=== PATIENT | male | born 1940 | race African-American/Black ===

== ENCOUNTER 2017-03-27 10:19 | Inpatient (IN) ==
[2017-03-27] MEDS ORDERED: HALOPERIDOL 0.5 MG TABLET PO PRN (10:32)
[2017-03-27] MEDS ORDERED: LORazepam 0.5 MG TABLET PO PRN (10:32)
[2017-03-27] MEDS ORDERED: HALOPERIDOL 5 MG/ML INJECTION IM PRN (10:32)
[2017-03-27 12:34] VITALS: BMI 17.1
[2017-03-27] MEDS ORDERED: PNEUMOCOCCAL 13 VACCINE 0.5ml INJECTION IM ONE (12:34)
[2017-03-27] MEDS ORDERED: PNEUMOCOCCAL VAC ADMIN CHARGE INJ ONE (20:50)
[2017-03-27] MEDS: QUETIAPINE 50 MG TABLET PO SCH (20:57)
[2017-03-28] MEDS: MEMANTINE 10 MG TABLET PO SCH (09:53)
--- NOTE | 2017-03-28 10:25 | History & Physical Report ---
History of Present Illness Date: 03/28/17 Chief complaint: schizophrenia with psychosis HPI: Raad Monaco is a pleasant patient of Dr. Howard Wiggins from [place] who was directly admitted to [facility] on 03/27/17 due to acute psychosis and schizophrenia. Reportedly his family brought him to [facility] ED during the early hours on 03/27/17 for evaluation of increased agitation, insomnia, decreased appetite, visual and auditory hallucinations which had progressively been getting worse over the past 10-14 days. He was admitted into observation status at [facility] while he awaited psychiatric screening. Labs on admission revealed mild anemia (10.3) as well as hypokalemia (potassium 3.3). It is unclear if potassium supplementation was provided during his acute hospitalization at [facility]. He was later accepted to the [facility] unit at [facility] for further psychiatric evaluation and treatment. The hospitalist service was consulted for medical management. His prior medical records were reviewed extensively. He has a history of significant alcohol and tobacco dependency/abuse which is believed to be a contributor to his underlying dementia. Prior medical records indicate that he moved to [place] to live with his son and [id number] in November of 2016. Since his move, he has had increasing falls as well as sleep disturbance, often pacing the halls at night. His son is very concerned about the patient's safety. He was seen by Dr. Neff, neurology, as an outpatient and it was recommended that he undergo a PET scan in the future for further evaluation of dementia and cognitive decline. Review of Systems All systems PM: 10-point ROS was reviewed, no additional remarkable complaints except - Constitutional Constitutional: Absent: chills, fever(s), headache(s), lethargy, weakness - EENMT Eyes: Absent: change in vision, photophobia Ears: Absent: ear pain Balance: Absent: falling to one side Nose: Absent: nosebleeds Mouth/Throat: Present: caries. Absent: sore throat, changes in swallowing, dry mouth - Cardiovascular Cardiovascular: Absent: chest pain, palpitations, syncope, dyspnea on exertion, orthopnea, edema Vascular: Absent: pallor of an extermity, pedal edema - Respiratory Respiratory: Absent: cough, dyspnea, hemoptysis, dyspnea on exertion, wheezing, pain on inspiration - Gastrointestinal Gastrointestinal: Absent: abdominal pain, constipation, diarrhea, melena, nausea , vomiting - Genitourinary Genitourinary: Absent: dysuria, flank pain, hematuria - Musculoskeletal Musculoskeletal: Absent: back pain, deformity, limited range of motion - Integumentary/Breasts Integumentary: Absent: rash - Neurological Neurological: Present: abnormal speech (mumbled and unorganized), confusion. Absent: convulsions, dizziness, focal weakness, headache(s), loss of vision, tremor(s) Neurological Comments: gait instability - Psychiatric Psychiatric: Present: abnormal sleep pattern, anxiety, auditory hallucinations, depression, hallucinations, visual hallucinations - Endocrine Endocrine: Absent: flushing, palpitations - Hematologic/Lymphatic Hematologic/Lymphatic: Absent: easy bruising - Allergic/Immunologic Allergic/Immunologic: Absent: seasonal rhinorrhea Past Medical History Patient Stated Medical History Dementia. Cataracts. COPD with asthma. Urinary incontinency. History of alcohol abuse. History of tobacco dependency. Surgical History: Patient denies prior surgical procedures. Family History Updates: Limited due to patient's dementia. Both parents are and he believes his father had "heart problems". He admits to 4 living children, 2 girls and 2 boys, which he believes are in good health. - Social History Smoking status: Former smoker (Quit 11/2016) Packs per day: 1 Packs-years: 40 Substance use type: does not use Alcohol intake frequency: former alcohol drinker (quit 11/2016) Housing: house Household members: family (son and [id number]) Current occupational status: retired Does patient use chewing tobacco?: No Current residence: Apartment/Private Home Social history: PCP - Dr. Howard Wiggins. Neuro - Dr. Neff. Medications Home Medications Medication Instructions Recorded Confirmed Type DiphenhydrAMINE [Benadryl] 1 cap PO HS 03/27/17 03/27/17 History Folic Acid [Folate] 1 tab PO DAILY 03/27/17 03/27/17 History Memantine [Namenda] 10 mg PO DAILY 03/27/17 03/27/17 History Multivitamin [Multivitamins] 1 cap PO DAILY 03/27/17 03/27/17 History Quetiapine [Seroquel] 12.5 mg PO 1400 03/27/17 03/27/17 History Quetiapine [Seroquel] 50 mg PO HS 01/10/18 01/10/18 History Thiamine [Vitamin B-1] 100 mg PO DAILY 03/27/17 03/27/17 History Allergies Allergy/AdvReac Type Severity Reaction Status Date / Time No Known Adverse Drug Allergy Verified 03/27/17 11:06 Reactions Exam Vital Signs: Temperature 97.6 F 03/28/17 08:00 Pulse Rate 100 03/28/17 08:00 Respiratory Rate 16 03/28/17 08:00 Blood Pressure 106/53 03/28/17 08:00 Pulse Oximetry 99 03/27/17 20:27 Height/Weight/BMI: Height 5 ft 5 in Weight 102 lb 15.294 oz Body Mass Index 17.1 Comments: Patient is seen in day room, actively eating all his breakfast. - Constitutional Present: no acute distress, well nourished, well developed, thin, cooperative - Routine HEENT Exam Head: Present: normocephalic, atraumatic Eye: Present: PERRL, cataracts. Absent: conjunctival icterus ENT: Present: mucous membranes moist Comments: very poor dentition noted with multiple fractured teeth; large, soft, lipoma noted to occipital region of scalp without tenderness. - Routine Neck Exam Present: supple, full ROM, trachea midline - Routine Chest/Breast/Axilla Exam Chest wall: Absent: pacemaker - Routine Respiratory Exam Present: CTA bilaterally. Absent: rales, rhonchi, stridor, wheezes - Routine Cardiovascular Exam Present: RRR, S1, S2 - Routine Abdominal Exam Present: soft, normoactive bowel sounds, non distended, non tender Comments: very thin - Routine Extremities Exam Present: no edema, non tender, full ROM, pulses intact - Routine Back/Spine/Pelvis Exam Back/Spine: Present: full ROM, kyphosis - Routine Skin Exam Present: dry, warm. Absent: jaundice Comments: afebrile. - Routine Neurological Exam Present: alert (orientated to self only), moving all extremities, hearing grossly intact speech is mumbled and unorganized. - Routine Psychiatric Exam Present: cooperative. Absent: suicidal ideation, homicidal ideation, auditory hallucinations, visual hallucinations, anxious, agitated Assessment and Plan (1) Psychosis Current visit: Yes Status: Acute Assessment and Plan: Assessment Psychosis with visual and auditory hallucinations, acute. Anemia, unspecified. Poor dentition, chronic. Dementia. Cataracts. COPD with asthma. Urinary incontinency. History of alcohol abuse. History of tobacco dependency. Plan - 03/28/17 (Admission) Agree with admission to [facility]. Provide safe and supportive environment. Hospitalist service consulted for medical management. Prior records from 03/25/17 indicated anemia (Hgb 10.3) and hypokalemia (K 3.3). Will obtain CBC and BMP now and treat as indicated. Underweight with BMI of 17.1. Will consult dietary for supplementation recommendations. Give extensive dental decay, will change diet to mechanical soft with chopped meats for ease of intake. Continue home medications and vitamins given history of alcohol abuse. Patient denies prior heart history. Monitor blood pressure closely. Monitor respiratory function closely. No wheezing or distress on exam and no home medications for COPD/asthma. Upon discharge, patient's care will be returned to PCP, Dr. Howard Wiggins. Resuscitation Status: Full Code - Time spent with patient Time with patient PN: 70 minutes - Physician Narrative Physician: Melody Peoples MD Narrative: Date: 03/28/17 Time: 1013 Hospital Course Summary Disclaimer: The visit summary below is not to be considered part of the above Progress Note. Hospital Course: Plan - 03/28/17 (Admission) Agree with admission to [facility]. Provide safe and supportive environment. Hospitalist service consulted for medical management. Prior records from 03/25/17 indicated anemia (Hgb 10.3) and hypokalemia (K 3.3). Will obtain CBC and BMP now and treat as indicated. Underweight with BMI of 17.1. Will consult dietary for supplementation recommendations. Give extensive dental decay, will change diet to mechanical soft with chopped meats for ease of intake. Continue home medications and vitamins given history of alcohol abuse. Patient denies prior heart history. Monitor blood pressure closely. Monitor respiratory function closely. No wheezing or distress on exam and no home medications for COPD/asthma. Upon discharge, patient's care will be returned to PCP, Dr. Howard Wiggins.
[2017-03-28] MEDS: FOLIC ACID 1 MG TABLET PO SCH (13:59)
[2017-03-28] MEDS: MULTI-VITAMIN PLAIN TABLET PO SCH (13:59)
[2017-03-28] MEDS: QUETIAPINE 25 MG TABLET PO SCH (14:00)
--- NOTE | 2017-03-28 18:03 | 24 Hour Neuropsychiatic Eval ---
Date of Admission: 03/27/17 10:19 History of Present Illness: Patient is a 77-year-old male who was admitted to [facility] on 03/27/17 after being brought by his family due to AV hallucinations, not sleeping, decreased appetite, frequent falls and their difficulty caring for patient because of these things. This has gotten progressively worse over the past 10-14 days. Patient lives in [place] with his son/DADA and his and has done so since November 2016. His son is DADA. On interview, patient is quite pleasant. He reports his mood is "good" and states he is here because he "was having back flashes" but these went away. He denies any change in sleep or appetite. He denies any SI, HI or AVH. He denies any paranoia. He is oriented to self only and believes he has been here for 3 months. Psychiatric history: Patient states that he was depressed once earlier in his life, but not currently. He is unsure if he took any medication for this. He denies any history of suicide attempts or psychiatric hospitalizations. This has not been validated by his family. Social history: Patient states that he is originally from [place] and went to school through 11th grade. 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 He does have a history of tobacco use and alcohol abuse, but says this was a long time ago. The above has also not been validated by his family. Patient is not able to name any medical conditions. His dentition is quite poor. Per hospitalist's chart review he has the following: anemia, poor nutrition, cataracts, COPD with asthma, urinary incontinence. Patient's SLUMS was 16/30 upon admission. Psychosis: Hallucinations/Illusions Dementia: Memory Impairment, Poor Executive Functioning Reviewed: Home Medications, Allergies, Current Lab Data, Imaging Reports, Nursing Notes, Physician Consults [facility] Patient Stated Medical History Dementia Yes Cataracts Yes Asthma Yes Chronic Obstructive Pulmonary questionable Disease (COPD) Hx Incontinence Yes Surgical History: Patient denies prior surgical procedures. Family History: Patient denies any family history of psychiatric illness but is not a reliable historian. - Social History Smoking status: Former smoker (Quit 11/2016) Substance use type: does not use Alcohol intake frequency: former alcohol drinker Household members: children Current occupational status: retired Does patient use chewing tobacco?: No Current residence: Apartment/Private Home Social history: Strengths: pleasant personality, has supportive family, currently living with son Review of Systems All systems: reviewed and no additional remarkable complaints except as stated - Constitutional Constitutional: Present: as per HPI - EENMT Ears: Absent: ear pain Balance: Absent: falling to one side Nose: Absent: nosebleeds Mouth/Throat: Present: caries. Absent: sore throat, changes in swallowing, dry mouth - Cardiovascular Vascular: Absent: pallor of an extermity, pedal edema - Genitourinary Genitourinary: Absent: dysuria, flank pain, hematuria - Neurological Neurological: Present: frequent falls, memory loss - Psychiatric Psychiatric: Present: as per HPI, abnormal sleep pattern, auditory hallucinations, behavioral changes, hallucinations, visual hallucinations Mental Status Exam Vitals: Last Vital Signs Temp 99.7 F 03/28/17 16:00 Pulse 90 03/28/17 16:00 Resp 16 03/28/17 16:00 BP 122/56 03/28/17 16:00 Pulse Ox 96 03/28/17 16:00 Height: 1.65 m Weight: 46.7 kg - Mental Status Exam Muscle Strength/Tone: Normal Dressing: Casual Grooming: Fair (very poor dentition) Attitude: Cooperative Motor Activity: Retardation Eye Contact: Other (Limited) Speech: Slowed Volume: Soft Rhythm: Appropriate Rhythm Sensory: Alert Orientation: Disoriented to time, Disoriented to place, Disoriented to situation , Oriented to person Mood: Euthymic Affect: Relaxed Rate of Thoughts: Delayed Thought Organization: Confused Associations: Illogical Abstract Reasoning: Poor abstract reasoning Thought Content: Other (No abnormal thought content elicited other than confusion due to MNCD) Current Hallucinations: Visual (reported by family, not apparent during interview), Auditory (reported by family, not apparent during interview) Language: Naming Impaired Fund of Knowledge: Poor fund of knowledge Memory: Poor-immediate, Poor-recent Suicidal Ideation: Denies Homicidal Ideation: Denies Insight: Impaired Judgement: Impaired Impulse Control: Fair - Laboratory Result Diagrams: 03/28/17 11:54 03/28/17 11:54 Laboratory Results - last 24 hr 03/28/17 03/28/17 11:54 11:54 WBC 6.2 RBC 3.89 L Hgb 11.5 L Hct 34.6 L MCV 88.9 MCH 29.6 MCHC 33.2 RDW Std Deviation 40.5 Plt Count 397 MPV 8.7 L Immature Gran % (Auto) 0.2 Neut % (Auto) 69.8 H Lymph % (Auto) 23.5 [place] % (Auto) 4.0 Eos % (Auto) 2.3 Baso % (Auto) 0.2 Neut # (Auto) 4.3 Lymph # (Auto) 1.5 [place] # (Auto) 0.3 Eos # (Auto) 0.1 Baso # (Auto) 0.0 Abs Immat Gran (auto) 0.01 Turbidity < 20 Sodium 146 H Potassium 3.5 L Chloride 104 Carbon Dioxide 30 Anion Gap 12 BUN 11.0 Creatinine 1.3 GFR Calculation 53 BUN/Creatinine Ratio 9 Glucose 142 H Calculated Osmolality 282 H Calcium 9.6 Icterus Index < 2 Specimen Hemolysis < 15 Assessment and Plan (1) Schizophrenia spectrum disorder with psychotic disorder type not yet determined Current visit: Yes Status: Acute (2) Major neurocognitive disorder Current visit: Yes Status: Acute (3) Anemia Current visit: Yes Status: Acute (4) Poor nutrition Current visit: Yes Status: Acute (5) Cataracts, bilateral Current visit: Yes Status: Acute (6) COPD with asthma Current visit: Yes Status: Acute (7) Urinary incontinence Current visit: Yes Status: Acute (8) History of alcohol use disorder Current visit: Yes Status: Acute (9) History of tobacco use disorder Current visit: Yes Status: Acute Admit to [facility] for [facility] evaluation and stabilization; maintain safety and elopement precautions. Will review/order the following labs: CBC, CMP , TSH, Vitamin B12 and folate, UA. Will obtain further collateral history from family. Have consulted hospitalist for optimization of medical comorbidities. Continue home meds: Namenda 10mg PO daily, Seroquel 12.5mg PO daily at 1400 and 50mg PO q HS. Monitor mood, behavior and response to treatment.
[2017-03-28] MEDS: QUETIAPINE 50 MG TABLET PO SCH (20:40)
[2017-03-29] MEDS: MEMANTINE 10 MG TABLET PO SCH (12:17)
[2017-03-29] MEDS: FOLIC ACID 1 MG TABLET PO SCH (12:17)
[2017-03-29] MEDS: MULTI-VITAMIN PLAIN TABLET PO SCH (12:17)
[2017-03-29] MEDS: QUETIAPINE 25 MG TABLET PO SCH ×2 (12:31→15:53)
--- NOTE | 2017-03-29 15:06 | Wound Care Progress Note ---
Wound Center Progress Note: Pt seen for wound consultation r/t wounds on bilateral buttocks. Seen with nurse , pt in recliner in [facility] area, brought back to his room for wound assessment. Pt denies pain, reports he has had these "sores" on his bottom for less than a week. Bilateral medial buttocks: Stage 3 PIs/mirror lesions/elements of MASD. L buttock: stage 3 PI, pink non granulating tissue, yellow slough, no drainage. Periwound: blanchable erythema. R buttock: Stage 3 PI, pink non granulating tissue, yellow slough, no drainage. Periwound: blanchable erythema. Wound dressings: To bilateral PIs: Clean with NS, place Hydrafera blue into wound bed, cover with Mepilex border, change q 3 days, off load with regular repositioning.
--- NOTE | 2017-03-29 15:10 | Wound Care Progress Note ---
Wound Management - Patient Status Premedicated Prior to Dressing Change: No - Wound Left Medial Buttock Wound Type: Pressure Injury Wound Present on Admission?: Yes Wound Staging: Stage III Length: 0.6 Width: 1 Depth: 0.1 Wound Bed Appearance: [place], [place] Wound Appearance: [place] Tunneling: No Undermining: No Drainage Amount: None Drainage Odor: No Odor Dressing Status: Changed Primary Dressing: Foam Dressing Secondary Dressing: Foam Dressing, Non-Adherent Contact Layer Dressing Change Date: 03/29/17 Dressing Change Time: 13:25 Dressing Change Patient Tolerance: Tolerated Well Right Medial Buttock Wound Type: Pressure Injury Wound Present on Admission?: Yes Wound Staging: Stage III Length: 2.5 Width: 2 Depth: 0.1 Wound Bed Appearance: [place] Wound Appearance: [place] Tunneling: No Undermining: No Drainage Amount: None Drainage Odor: No Odor Dressing Status: Changed Primary Dressing: Foam Dressing Secondary Dressing: Foam Dressing Dressing Change Date: 03/29/17 Dressing Change Time: 13:25 Dressing Change Patient Tolerance: Tolerated Well (Hydrafera blue classis moistened with NS to wound bed/Mepilex, change q 3 days) - Wound Comment Wound Comment: Hydrafera blue classic moistened with NS to wound bed, covered with Mepilex
--- NOTE | 2017-03-29 18:31 | Neuropsych Progress Note ---
[facility] Subjective Date: 03/29/17 - Sujective/Severity of Illness Medications: Folic Acid (Folate) 1 mg PO DAILY COUNTS INCLUDE 234 BEDS AT THE [facility] Last Admin: 03/29/17 12:17 Dose: 1 mg Haloperidol (Haldol) 0.5 mg PO Q6H PRN PRN Reason: Extreme agitation Haloperidol Lactate (Haldol) 0.5 mg IM Q6H PRN PRN Reason: Extreme agitation Lorazepam (Ativan) 0.5 mg PO Q6H PRN PRN Reason: Extreme agitation Lorazepam (Ativan Inj) 0.5 mg IM Q6H PRN PRN Reason: Extreme agitation Memantine (Namenda) 10 mg PO DAILY COUNTS INCLUDE 234 BEDS AT THE [facility] Last Admin: 03/29/17 12:17 Dose: 10 mg Multivitamins (Theragran) 1 tab PO DAILY COUNTS INCLUDE 234 BEDS AT THE [facility] Last Admin: 03/29/17 12:17 Dose: 1 tab Quetiapine Fumarate (Seroquel) 12.5 mg PO 1400 COUNTS INCLUDE 234 BEDS AT THE [facility] Last Admin: 03/29/17 15:53 Dose: Not Given Quetiapine Fumarate (Seroquel) 50 mg PO HS COUNTS INCLUDE 234 BEDS AT THE [facility] Last Admin: 03/28/17 20:40 Dose: 50 mg Thiamine HCl (Vitamin B-1) 100 mg PO DAILY COUNTS INCLUDE 234 BEDS AT THE [facility] Last Admin: 03/29/17 12:18 Dose: 100 mg Subjective: Patient seen and chart reviewed. Case discussed with treatment team. On interview, patient is pleasant. He reports his mood is "good" and denies any physical complaints. Patient denies any SI, HI or AVH. Patient denies any adverse side effects related to psychotropic medications. Nursing staff report patient becomes more confused in the evenings but is otherwise cooperative. He has a pressure wound on his coccyx. Patient has been adherent with medications. Patient slept 6 hours overnight though is somewhat restless at times. VSS. Appetite limited. Psychotropic PRNs required in the past 24 hours: none. Start Time: 11:00 Stop Time: 11:20 Mental Status Exam Vitals: Last Vital Signs Temp 96.1 F L 03/29/17 16:00 Pulse 77 03/29/17 16:00 Resp 16 03/29/17 16:00 BP 133/60 03/29/17 16:00 Pulse Ox 100 03/29/17 16:00 Height: 1.65 m Weight: 46.7 kg - Mental Status Exam Muscle Strength/Tone: Normal Dressing: Casual Grooming: Fair (very poor dentition) Attitude: Cooperative Motor Activity: Retardation Eye Contact: Other (Limited) Speech: Slowed Volume: Soft Rhythm: Appropriate Rhythm Orientation: Disoriented to time, Disoriented to place, Disoriented to situation , Oriented to person Mood: Euthymic Affect: Relaxed Rate of Thoughts: Delayed Thought Organization: Confused Associations: Illogical (at times) Abstract Reasoning: Poor abstract reasoning Thought Content: Other (No abnormal thought content elicited other than confusion due to MNCD) Perception/Psychotic: Hx psychosis, not current (reported by family, not seen on unit) Language: Naming Impaired Fund of Knowledge: Poor fund of knowledge Memory: Poor-immediate, Poor-recent Suicidal Ideation: Denies Homicidal Ideation: Denies Insight: Impaired Judgement: Impaired Impulse Control: Good - Laboratory Result Diagrams: 03/28/17 11:54 03/29/17 07:04 Laboratory Results - last 24 hr 03/28/17 03/28/17 03/29/17 11:54 23:51 07:04 Turbidity < 20 Sodium 143 Potassium 3.7 Chloride 105 Carbon Dioxide 28 Anion Gap 10 BUN 10.0 Creatinine 1.1 D GFR Calculation 65 BUN/Creatinine Ratio 9 Glucose 105 Calculated Osmolality 274 Calcium 9.1 Icterus Index < 2 Vitamin B12 812 Specimen Hemolysis < 15 Ur Collection Type Urine, clean catch Urine Color Yellow Urine Clarity Clear Urine pH 5.5 Ur Specific [place] 1.015 Urine Protein Negative Urine Glucose (UA) Negative Urine Ketones Negative Urine Occult Blood Negative Urine Nitrate Negative Urine Bilirubin Negative Urine Urobilinogen 0.2 Ur Leukocyte Esterase Negative Urinalysis Comment Microscopic not ind. Assessment and Plan (1) Schizophrenia spectrum disorder with psychotic disorder type not yet determined Current visit: Yes Status: Acute R/O Medication-induced delirium (due to Benadryl, held since admission) (2) Major neurocognitive disorder Current visit: Yes Status: Acute (3) Anemia Current visit: Yes Status: Acute (4) Poor nutrition Current visit: Yes Status: Acute (5) Cataracts, bilateral Current visit: Yes Status: Acute (6) COPD with asthma Current visit: Yes Status: Acute (7) Urinary incontinence Current visit: Yes Status: Acute (8) History of alcohol use disorder Current visit: Yes Status: Acute (9) History of tobacco use disorder Current visit: Yes Status: Acute Will consider requesting ST Eval to determine which foods would be most helpful for patient given poor dentition. Will discuss other care needs with family as well as patient has pressure wound on coccyx, will need 24/7 supervision, etc. Plan to speak to DPOA about possibility of starting Remeron to target restless sleep, appetite. Hospital Course Summary Disclaimer: The visit summary below is not to be considered part of the above Progress Note. Hospital Course: Plan - 03/28/17 (Admission) Agree with admission to [facility]. Provide safe and supportive environment. Hospitalist service consulted for medical management. Prior records from 03/25/17 indicated anemia (Hgb 10.3) and hypokalemia (K 3.3). Will obtain CBC and BMP now and treat as indicated. Underweight with BMI of 17.1. Will consult dietary for supplementation recommendations. Give extensive dental decay, will change diet to mechanical soft with chopped meats for ease of intake. Continue home medications and vitamins given history of alcohol abuse. Patient denies prior heart history. Monitor blood pressure closely. Monitor respiratory function closely. No wheezing or distress on exam and no home medications for COPD/asthma. Upon discharge, patient's care will be returned to PCP, Dr. Howard Wiggins. 03/28/17 Psych: Benadryl given by family for insomnia held upon admission. 03/29/17 Psych: Will consider requesting ST Eval to determine which foods would be most helpful for patient given poor dentition. Will discuss other care needs with family as well as patient has pressure wound on coccyx, will need 24/7 supervision, etc. Plan to speak to DPOA about possibility of starting Remeron to target restless sleep, appetite.
[2017-03-29] MEDS: MIRTAZAPINE 15 MG TABLET PO SCH (21:31)
[2017-03-29] MEDS: QUETIAPINE 50 MG TABLET PO SCH (21:32)
[2017-03-30] MEDS: MEMANTINE 10 MG TABLET PO SCH (08:54)
[2017-03-30] MEDS: MULTI-VITAMIN PLAIN TABLET PO SCH (08:54)
[2017-03-30] MEDS: FOLIC ACID 1 MG TABLET PO SCH (08:54)
--- NOTE | 2017-03-30 11:28 | Neuropsych Progress Note ---
[facility] Subjective Date: 03/30/17 - Sujective/Severity of Illness Medications: Folic Acid (Folate) 1 mg PO DAILY [facility] Last Admin: 03/30/17 08:54 Dose: 1 mg Haloperidol (Haldol) 0.5 mg PO Q6H PRN PRN Reason: Extreme agitation Haloperidol Lactate (Haldol) 0.5 mg IM Q6H PRN PRN Reason: Extreme agitation Lorazepam (Ativan) 0.5 mg PO Q6H PRN PRN Reason: Extreme agitation Lorazepam (Ativan Inj) 0.5 mg IM Q6H PRN PRN Reason: Extreme agitation Memantine (Namenda) 10 mg PO DAILY [facility] Last Admin: 03/30/17 08:54 Dose: 10 mg Mirtazapine (Remeron) 7.5 mg PO [facility] Last Admin: 03/29/17 21:31 Dose: 7.5 mg Multivitamins (Theragran) 1 tab PO DAILY [facility] Last Admin: 03/30/17 08:54 Dose: 1 tab Quetiapine Fumarate (Seroquel) 12.5 mg PO 1400 [facility] Last Admin: 03/29/17 15:53 Dose: Not Given Quetiapine Fumarate (Seroquel) 50 mg PO [facility] Last Admin: 03/29/17 21:32 Dose: 50 mg Thiamine HCl (Vitamin B-1) 100 mg PO DAILY [facility] Last Admin: 03/30/17 08:54 Dose: 100 mg Subjective: Patient seen and chart reviewed. Nursing reports pt is doing well. Sleeping well and has a good appetite. No behaviors noted. On face to face the pt is pleasant and cooperative. He reports his mood is stable and voices no concerns. Denies pain. Tolerating meds Start Time: 10:00 Stop Time: 10:15 Mental Status Exam Vitals: Last Vital Signs Temp 97.6 F 03/30/17 08:00 Pulse 109 H 03/30/17 08:00 Resp 22 03/30/17 08:00 BP 118/54 03/30/17 08:00 Pulse Ox 100 03/30/17 08:00 Height: 1.65 m Weight: 46.7 kg - Mental Status Exam Muscle Strength/Tone: Normal Dressing: Casual Grooming: Fair (very poor dentition) Attitude: Cooperative Motor Activity: Retardation Eye Contact: Other (Limited) Speech: Slowed Volume: Soft Rhythm: Appropriate Rhythm Orientation: Disoriented to time, Disoriented to place, Disoriented to situation , Oriented to person Mood: Euthymic Rate of Thoughts: Delayed Thought Organization: Confused Associations: Illogical (at times) Abstract Reasoning: Poor abstract reasoning Thought Content: Other (No abnormal thought content elicited other than confusion due to MNCD) Perception/Psychotic: Hx psychosis, not current (reported by family, not seen on unit) Current Hallucinations: Visual (reported by family, not apparent during interview), Auditory (reported by family, not apparent during interview) Language: Naming Impaired Fund of Knowledge: Poor fund of knowledge Memory: Poor-immediate, Poor-recent Suicidal Ideation: Denies Homicidal Ideation: Denies Insight: Impaired Judgement: Impaired Impulse Control: Good - Laboratory Result Diagrams: 03/28/17 11:54 03/29/17 07:04 Assessment and Plan (1) Schizophrenia spectrum disorder with psychotic disorder type not yet determined Current visit: Yes Status: Acute (2) Major neurocognitive disorder Current visit: Yes Status: Acute (3) Anemia Current visit: Yes Status: Acute (4) Poor nutrition Current visit: Yes Status: Acute (5) Cataracts, bilateral Current visit: Yes Status: Acute (6) COPD with asthma Current visit: Yes Status: Acute (7) Urinary incontinence Current visit: Yes Status: Acute (8) History of alcohol use disorder Current visit: Yes Status: Acute (9) History of tobacco use disorder Current visit: Yes Status: Acute Hospital Course Summary Disclaimer: The visit summary below is not to be considered part of the above Progress Note. Hospital Course: Plan - 03/28/17 (Admission) Agree with admission to [facility] unit. Provide safe and supportive environment. Hospitalist service consulted for medical management. Prior records from 03/25/17 indicated anemia (Hgb 10.3) and hypokalemia (K 3.3). Will obtain CBC and BMP now and treat as indicated. Underweight with BMI of 17.1. Will consult dietary for supplementation recommendations. Give extensive dental decay, will change diet to mechanical soft with chopped meats for ease of intake. Continue home medications and vitamins given history of alcohol abuse. Patient denies prior heart history. Monitor blood pressure closely. Monitor respiratory function closely. No wheezing or distress on exam and no home medications for COPD/asthma. Upon discharge, patient's care will be returned to PCP, Dr. Hwoard Wiggins. 03/28/17 Psych: Benadryl given by family for insomnia held upon admission. 03/29/17 Psych: Will consider requesting ST Eval to determine which foods would be most helpful for patient given poor dentition. Will discuss other care needs with family as well as patient has pressure wound on coccyx, will need 24/ supervision, etc. Plan to speak to DPOA about possibility of starting Remeron to target restless sleep, appetite. 03/30/17- Pt doing well. Continue current care
[2017-03-30] MEDS: QUETIAPINE 25 MG TABLET PO SCH (17:20)
[2017-03-30] MEDS: MIRTAZAPINE 15 MG TABLET PO SCH (20:07)
[2017-03-30] MEDS: QUETIAPINE 50 MG TABLET PO SCH (20:07)
[2017-03-31] MEDS: MEMANTINE 10 MG TABLET PO SCH (10:23)
[2017-03-31] MEDS: FOLIC ACID 1 MG TABLET PO SCH (10:23)
[2017-03-31] MEDS: MULTI-VITAMIN PLAIN TABLET PO SCH (10:23)
--- NOTE | 2017-03-31 10:39 | Neuropsych Progress Note ---
[facility] Subjective Date: 03/31/17 - Sujective/Severity of Illness Medications: Folic Acid (Folate) 1 mg PO DAILY [facility] Last Admin: 03/31/17 10:23 Dose: 1 mg Haloperidol (Haldol) 0.5 mg PO Q6H PRN PRN Reason: Extreme agitation Haloperidol Lactate (Haldol) 0.5 mg IM Q6H PRN PRN Reason: Extreme agitation Lorazepam (Ativan) 0.5 mg PO Q6H PRN PRN Reason: Extreme agitation Lorazepam (Ativan Inj) 0.5 mg IM Q6H PRN PRN Reason: Extreme agitation Memantine (Namenda) 10 mg PO DAILY [facility] Last Admin: 03/31/17 10:23 Dose: 10 mg Mirtazapine (Remeron) 7.5 mg PO [facility] Last Admin: 03/30/17 20:07 Dose: 7.5 mg Multivitamins (Theragran) 1 tab PO DAILY [facility] Last Admin: 03/31/17 10:23 Dose: 1 tab Quetiapine Fumarate (Seroquel) 12.5 mg PO 1400 [facility] Last Admin: 03/30/17 17:20 Dose: Not Given Quetiapine Fumarate (Seroquel) 50 mg PO [facility] Last Admin: 03/30/17 20:07 Dose: 50 mg Thiamine HCl (Vitamin B-1) 100 mg PO DAILY [facility] Last Admin: 03/31/17 10:23 Dose: 100 mg Subjective: Patient seen and chart reviewed. Nursing reports pt is doing well. Sleeping well and has a good appetite. No behaviors noted. On face to face the pt is bright and states he is doing well. He denies pain and voices no concerns at this time. Tolerating meds Start Time: 10:00 Stop Time: 10:15 Mental Status Exam Vitals: Last Vital Signs Temp 96.8 F 03/31/17 08:00 Pulse 106 H 03/31/17 08:00 Resp 16 03/31/17 08:00 BP 129/60 03/31/17 08:00 Pulse Ox 100 03/31/17 08:00 Height: 1.65 m Weight: 46.7 kg - Mental Status Exam Muscle Strength/Tone: Normal Dressing: Casual Grooming: Fair (very poor dentition) Attitude: Cooperative Motor Activity: Retardation Eye Contact: Other (Limited) Speech: Slowed Volume: Soft Rhythm: Appropriate Rhythm Orientation: Disoriented to time, Disoriented to place, Disoriented to situation , Oriented to person Mood: Euthymic Rate of Thoughts: Delayed Thought Organization: Confused Associations: Illogical (at times) Abstract Reasoning: Poor abstract reasoning Thought Content: Other (No abnormal thought content elicited other than confusion due to MNCD) Perception/Psychotic: Hx psychosis, not current (reported by family, not seen on unit) Current Hallucinations: Visual (reported by family, not apparent during interview), Auditory (reported by family, not apparent during interview) Language: Naming Impaired Fund of Knowledge: Poor fund of knowledge Memory: Poor-immediate, Poor-recent Suicidal Ideation: Denies Homicidal Ideation: Denies Insight: Impaired Judgement: Impaired Impulse Control: Good - Laboratory Result Diagrams: 03/28/17 11:54 03/29/17 07:04 Assessment and Plan (1) Schizophrenia spectrum disorder with psychotic disorder type not yet determined Current visit: Yes Status: Acute (2) Major neurocognitive disorder Current visit: Yes Status: Acute (3) Anemia Current visit: Yes Status: Acute (4) Poor nutrition Current visit: Yes Status: Acute (5) Cataracts, bilateral Current visit: Yes Status: Acute (6) COPD with asthma Current visit: Yes Status: Acute (7) Urinary incontinence Current visit: Yes Status: Acute (8) History of alcohol use disorder Current visit: Yes Status: Acute (9) History of tobacco use disorder Current visit: Yes Status: Acute Hospital Course Summary Disclaimer: The visit summary below is not to be considered part of the above Progress Note. Hospital Course: Plan - 03/28/17 (Admission) Agree with admission to [facility] unit. Provide safe and supportive environment. Hospitalist service consulted for medical management. Prior records from 03/25/17 indicated anemia (Hgb 10.3) and hypokalemia (K 3.3). Will obtain CBC and BMP now and treat as indicated. Underweight with BMI of 17.1. Will consult dietary for supplementation recommendations. Give extensive dental decay, will change diet to mechanical soft with chopped meats for ease of intake. Continue home medications and vitamins given history of alcohol abuse. Patient denies prior heart history. Monitor blood pressure closely. Monitor respiratory function closely. No wheezing or distress on exam and no home medications for COPD/asthma. Upon discharge, patient's care will be returned to PCP, Dr. Howard Wiggins. 03/28/17 Psych: Benadryl given by family for insomnia held upon admission. 03/29/17 Psych: Will consider requesting ST Eval to determine which foods would be most helpful for patient given poor dentition. Will discuss other care needs with family as well as patient has pressure wound on coccyx, will need 24/7 supervision, etc. Plan to speak to DPOA about possibility of starting Remeron to target restless sleep, appetite. 03/30/17- Pt doing well. Continue current care 03/31/17 Pt is fairly stable. Continue current care
[2017-03-31] MEDS: QUETIAPINE 25 MG TABLET PO SCH (13:00)
--- NOTE | 2017-03-31 13:02 | Progress Note ---
- Date 03/31/17 Subjective: Raad is seen today in follow up for his acute psychosis. He is seen while sitting in the day room, watching TV. He has a pleasant and upbeat disposition and denies any complaints or concerns. No chest pain, shortness of breath, abdominal pain, nausea, vomiting or dysuria. He reports that his appetite is good and his bowels are moving. He denies any SI/HI but does admit to hearing voices. He states the voices are just saying "same ole, same ole" stuff. Bowels are moving. Nursing reports that overall, he is doing well and no behaviors. Objective Vital signs: Temperature 96.8 F 03/31/17 08:00 Pulse Rate 106 H 03/31/17 08:00 Respiratory Rate 16 03/31/17 08:00 Blood Pressure 129/60 03/31/17 08:00 Pulse Oximetry 100 03/31/17 08:00 Height/Weight/BMI: Height 5 ft 5 in Weight 102 lb 15.294 oz Body Mass Index 17.1 Comments: sitting in day room. - Constitutional Present: no acute distress, mild distress, well nourished, well developed, thin , cooperative - Routine HEENT Exam Head: Present: normocephalic, atraumatic Eye: Present: PERRL. Absent: conjunctival icterus ENT: Present: mucous membranes moist Comments: poor dentition. - Routine Respiratory Exam Present: CTA bilaterally. Absent: rales, rhonchi, stridor, wheezes, crackles - Routine Cardiovascular Exam Present: RRR, S1, S2 - Routine Abdominal Exam Present: soft, normoactive bowel sounds, non distended, non tender - Routine Extremities Exam Present: no edema, full ROM Comments: ambulates easily without assistance. - Routine Back/Spine/Pelvis Exam Back/Spine: Present: full ROM, kyphosis. Absent: vertebral tenderness - Routine Musculoskeletal Exam Musculoskeletal: Present: moving extremities well - Routine Skin Exam Present: intact, dry, warm. Absent: jaundice Comments: afebrile. - Routine Neurological Exam Present: alert, moving all extremities, hearing grossly intact, normal speech. Absent: facial asymmetry - Routine Lymphatic Exam Lymphatic: Absent: lymphedema - Routine Psychiatric Exam Present: auditory hallucinations, cooperative. Absent: suicidal ideation, homicidal ideation Results - Labs CBC & Chem 7: 03/28/17 11:54 03/29/17 07:04 Assessment and Plan (1) Psychosis Current visit: Yes Status: Acute Assessment and Plan: Assessment Psychosis with visual and auditory hallucinations, acute. Anemia, unspecified. Poor dentition, chronic. Dementia. Cataracts. COPD with asthma. Urinary incontinency. History of alcohol abuse. History of tobacco dependency. Plan - 03/31/17 Overall, patient is doing well. Continue psychiatric care per Dr. Hayes and team. Continue to provide safe and supportive environment. Hypokalemia resolved. Will continue to monitor periodically. Anticipate discharge in near future. Continue current care. MD: The patient was discussed with the PA. I have reviewed her note. I have reviewed his labs, imaging and other notes. I agree with the assessment and plan. Resuscitation Status: Full Code - Time spent with patient Time with patient PN: 35 minutes - Physician Narrative Physician: Merry Powell MD Narrative: Date: 03/31/17 Time: 1259 Hospital Course Summary Disclaimer: The visit summary below is not to be considered part of the above Progress Note. Hospital Course: Plan - 03/28/17 (Admission) Agree with admission to [facility] unit. Provide safe and supportive environment. Hospitalist service consulted for medical management. Prior records from 03/25/17 indicated anemia (Hgb 10.3) and hypokalemia (K 3.3). Will obtain CBC and BMP now and treat as indicated. Underweight with BMI of 17.1. Will consult dietary for supplementation recommendations. Give extensive dental decay, will change diet to mechanical soft with chopped meats for ease of intake. Continue home medications and vitamins given history of alcohol abuse. Patient denies prior heart history. Monitor blood pressure closely. Monitor respiratory function closely. No wheezing or distress on exam and no home medications for COPD/asthma. Upon discharge, patient's care will be returned to PCP, Dr. Howard Wiggins. 03/28/17 Psych: Benadryl given by family for insomnia held upon admission. 03/29/17 Psych: Will consider requesting ST Eval to determine which foods would be most helpful for patient given poor dentition. Will discuss other care needs with family as well as patient has pressure wound on coccyx, will need 24/7 supervision, etc. Plan to speak to DPOA about possibility of starting Remeron to target restless sleep, appetite. 03/30/17- Pt doing well. Continue current care 03/31/17 Pt is fairly stable. Continue current care Plan - 03/31/17 Overall, patient is doing well. Continue psychiatric care per Dr. Hayes and team. Continue to provide safe and supportive environment. Hypokalemia resolved. Will continue to monitor periodically. Anticipate discharge in near future. Continue current care.
[2017-03-31] MEDS: MIRTAZAPINE 15 MG TABLET PO SCH (20:24)
[2017-03-31] MEDS: QUETIAPINE 50 MG TABLET PO SCH (20:24)
[2017-04-01] MEDS: MEMANTINE 10 MG TABLET PO SCH (08:14)
[2017-04-01] MEDS: MULTI-VITAMIN PLAIN TABLET PO SCH (08:15)
[2017-04-01] MEDS: FOLIC ACID 1 MG TABLET PO SCH (08:15)
--- NOTE | 2017-04-01 14:52 | Neuropsych Progress Note ---
Generations Subjective Date: 04/01/17 - Sujective/Severity of Illness Medications: Folic Acid (Folate) 1 mg PO DAILY [facility] Last Admin: 04/01/17 08:15 Dose: 1 mg Haloperidol (Haldol) 0.5 mg PO Q6H PRN PRN Reason: Extreme agitation Haloperidol Lactate (Haldol) 0.5 mg IM Q6H PRN PRN Reason: Extreme agitation Lorazepam (Ativan) 0.5 mg PO Q6H PRN PRN Reason: Extreme agitation Lorazepam (Ativan Inj) 0.5 mg IM Q6H PRN PRN Reason: Extreme agitation Memantine (Namenda) 10 mg PO DAILY [facility] Last Admin: 04/01/17 08:14 Dose: 10 mg Mirtazapine (Remeron) 7.5 mg PO [facility] Last Admin: 03/31/17 20:24 Dose: 7.5 mg Multivitamins (Theragran) 1 tab PO DAILY [facility] Last Admin: 04/01/17 08:15 Dose: 1 tab Quetiapine Fumarate (Seroquel) 12.5 mg PO 1400 [facility] Last Admin: 03/31/17 13:00 Dose: 12.5 mg Quetiapine Fumarate (Seroquel) 50 mg PO [facility] Last Admin: 03/31/17 20:24 Dose: 50 mg Thiamine HCl (Vitamin B-1) 100 mg PO DAILY [facility] Last Admin: 04/01/17 08:15 Dose: 100 mg Subjective: Patient seen and chart reviewed. Case discussed with treatment team. On interview, patient is pleasant. He reports his mood is good and he feels well physically. Patient denies any SI, HI or AVH. Patient denies any adverse side effects related to psychotropic medications. Nursing staff report patient has been cooperative, without behavioral problems on the unit. Patient has been adherent with medications. Patient slept 11 hours overnight. VSS. Appetite is fair. Psychotropic PRNs required in the past 24 hours: none. Discussed needs at home with treatment team: 08/10 supervision, hygienic cares and mariama-care due to incontinence, close supervision due to fall risk. SW to discuss all this with family to ensure they can manage patient in their home. Will discuss medications with family to ensure no more Benadryl is given as it was likely cause of hallucinations prior to admission. Start Time: 09:00 Stop Time: 09:20 Mental Status Exam Vitals: Last Vital Signs Temp 98.4 F 04/01/17 07:52 Pulse 95 04/01/17 07:52 Resp 16 04/01/17 07:52 BP 105/51 04/01/17 07:52 Pulse Ox 95 04/01/17 07:52 Height: 1.65 m Weight: 46.7 kg - Mental Status Exam Muscle Strength/Tone: Normal Dressing: Casual Grooming: Fair (very poor dentition) Attitude: Cooperative Motor Activity: Retardation Eye Contact: Other (Limited, poor vision) Speech: Slowed Volume: Soft Rhythm: Appropriate Rhythm Orientation: Disoriented to time, Disoriented to place, Disoriented to situation , Oriented to person Mood: Euthymic Affect: Bright, Relaxed Rate of Thoughts: Delayed Thought Organization: Confused Associations: Illogical (at times) Abstract Reasoning: Poor abstract reasoning Thought Content: Other (No abnormal thought content elicited other than confusion due to MNCD) Perception/Psychotic: Hx psychosis, not current Current Hallucinations: Visual Language: Naming Impaired Fund of Knowledge: Poor fund of knowledge Memory: Poor-immediate, Poor-recent Suicidal Ideation: Denies Homicidal Ideation: Denies Insight: Impaired Judgement: Impaired Impulse Control: Good (other than limited safety awareness) - Laboratory Result Diagrams: 04/01/17 08:54 04/01/17 08:54 Laboratory Results - last 24 hr 04/01/17 04/01/17 08:54 08:54 WBC 5.6 RBC 3.25 L Hgb 9.8 L Hct 28.9 L MCV 88.9 MCH 30.2 MCHC 33.9 RDW Std Deviation 40.5 Plt Count 341 MPV 9.1 L Immature Gran % (Auto) 0.2 Neut % (Auto) 57.3 Lymph % (Auto) 33.6 [place] % (Auto) 5.7 Eos % (Auto) 3.0 Baso % (Auto) 0.2 Neut # (Auto) 3.2 Lymph # (Auto) 1.9 [place] # (Auto) 0.3 Eos # (Auto) 0.2 Baso # (Auto) 0.0 Abs Immat Gran (auto) 0.01 Turbidity < 20 Sodium 139 Potassium 4.4 Chloride 100 Carbon Dioxide 30 Anion Gap 9 BUN 18.0 Creatinine 1.2 GFR Calculation 59 BUN/Creatinine Ratio 15 Glucose 110 Calculated Osmolality 271 Calcium 9.3 Icterus Index < 2 Specimen Hemolysis 24 Assessment and Plan (1) Delirium, drug-induced Current visit: Yes Status: Resolved (2) Major neurocognitive disorder Problem details: vascular, moderate, without behavioral disturbance Current visit: Yes Status: Acute (3) Anemia Current visit: Yes Status: Acute (4) Poor nutrition Current visit: Yes Status: Acute (5) Cataracts, bilateral Current visit: Yes Status: Acute (6) COPD with asthma Current visit: Yes Status: Acute (7) Urinary incontinence Current visit: Yes Status: Acute (8) History of alcohol use disorder Current visit: Yes Status: Acute (9) History of tobacco use disorder Current visit: Yes Status: Acute Will discuss care requirements (as outline in HPI) with family to ensure safe discharge plan. Plan to discharge back home once arrangements have been finalized with family. Hospital Course Summary Disclaimer: The visit summary below is not to be considered part of the above Progress Note. Hospital Course: Plan - 03/28/17 (Admission) Agree with admission to [facility] unit. Provide safe and supportive environment. Hospitalist service consulted for medical management. Prior records from 03/25/17 indicated anemia (Hgb 10.3) and hypokalemia (K 3.3). Will obtain CBC and BMP now and treat as indicated. Underweight with BMI of 17.1. Will consult dietary for supplementation recommendations. Give extensive dental decay, will change diet to mechanical soft with chopped meats for ease of intake. Continue home medications and vitamins given history of alcohol abuse. Patient denies prior heart history. Monitor blood pressure closely. Monitor respiratory function closely. No wheezing or distress on exam and no home medications for COPD/asthma. Upon discharge, patient's care will be returned to PCP, Dr. Howard Wiggins. 03/28/17 Psych: Benadryl given by family for insomnia held upon admission. 03/29/17 Psych: Will consider requesting ST Eval to determine which foods would be most helpful for patient given poor dentition. Will discuss other care needs with family as well as patient has pressure wound on coccyx, will need 24/7 supervision, etc. Plan to speak to DPOA about possibility of starting Remeron to target restless sleep, appetite. 03/30/17- Pt doing well. Continue current care 03/31/17 Pt is fairly stable. Continue current care Plan - 03/31/17 Overall, patient is doing well. Continue psychiatric care per Dr. Hayes and team. Continue to provide safe and supportive environment. Hypokalemia resolved. Will continue to monitor periodically. Anticipate discharge in near future. Continue current care. 04/01/17 Psych: Will discuss care requirements (as outline in HPI) with family to ensure safe discharge plan. Plan to discharge back home once arrangements have been finalized with family. Will ensure no further Benadryl to be given after discharge.
[2017-04-01] MEDS: QUETIAPINE 25 MG TABLET PO SCH (15:31)
[2017-04-01] MEDS: MIRTAZAPINE 15 MG TABLET PO SCH ×2 (19:54→22:04)
[2017-04-01] MEDS: QUETIAPINE 50 MG TABLET PO SCH ×2 (19:54→22:04)
[2017-04-01 22:36] VITALS: PULSE 86; O2SAT 98
--- NOTE | 2017-04-02 08:05 | Progress Note ---
Progress Note: Pt DC today. Reviewed non-psych meds. He needs f-u CBC at his appt with his PCP given his drop in hgb. Nurse will notify PCP.
[2017-04-02] MEDS: MULTI-VITAMIN PLAIN TABLET PO SCH (09:16)
[2017-04-02] MEDS: FOLIC ACID 1 MG TABLET PO SCH (09:16)
[2017-04-02] MEDS: MEMANTINE 10 MG TABLET PO SCH (09:16)
[2017-04-02 09:29] VITALS: BP 144/78; RESP 18; TEMP 96.9
--- NOTE | 2017-04-02 15:44 | Neuropsych Progress Note ---
[facility] Subjective Date: 04/02/17 - Sujective/Severity of Illness Medications: See MAR Subjective: Patient seen and chart reviewed. Case discussed with treatment team. On interview, patient is pleasant. He reports his mood is good and he feels well physically. He feels ready to go home today. Patient denies any SI, HI or AVH. Patient denies any adverse side effects related to psychotropic medications. Nursing staff report patient has been cooperative, without behavioral problems on the unit. Patient has been adherent with medications. Patient slept 7 hours overnight. VSS. Appetite is fair. Psychotropic PRNs required in the past 24 hours: none. Start Time: 08:40 Stop Time: 09:00 Mental Status Exam Vitals: Last Vital Signs Temp 96.9 F 04/02/17 08:00 Pulse 86 04/02/17 08:00 Resp 18 04/02/17 08:00 BP 144/78 H 04/02/17 08:00 Pulse Ox 98 04/02/17 08:00 Height: 1.65 m Weight: 46.7 kg - Mental Status Exam Muscle Strength/Tone: Normal Dressing: Casual Grooming: Fair (very poor dentition) Attitude: Cooperative Motor Activity: Retardation Eye Contact: Other (Limited due to poor vision) Speech: Slowed Volume: Soft Rhythm: Appropriate Rhythm Orientation: Disoriented to time, Disoriented to place, Oriented to person Mood: Euthymic Affect: Bright, Relaxed Rate of Thoughts: Delayed Thought Organization: Confused (due to MNCD) Associations: Illogical (at times) Abstract Reasoning: Poor abstract reasoning Thought Content: Other (No abnormal thought content elicited other than confusion due to MNCD) Perception/Psychotic: Hx psychosis, not current Current Hallucinations: Visual Language: Naming Impaired Fund of Knowledge: Poor fund of knowledge Memory: Poor-immediate, Poor-recent Suicidal Ideation: Denies Homicidal Ideation: Denies Insight: Impaired Judgement: Impaired Impulse Control: Good (other than limited safety awareness) - Laboratory Result Diagrams: 04/01/17 08:54 04/01/17 08:54 Assessment and Plan (1) Delirium, drug-induced Status: Resolved (2) Major neurocognitive disorder Problem details: vascular, moderate, without behavioral disturbance Status: Acute (3) Anemia Status: Acute (4) Poor nutrition Status: Acute (5) Cataracts, bilateral Status: Acute (6) COPD with asthma Status: Acute (7) Urinary incontinence Status: Acute (8) History of alcohol use disorder Status: Acute (9) History of tobacco use disorder Status: Acute Discharge to home with son/DPOA; patient will be supervised for safety 08/10. Hospital Course Summary Disclaimer: The visit summary below is not to be considered part of the above Progress Note. Hospital Course: Plan - 03/28/17 (Admission) Agree with admission to [facility] unit. Provide safe and supportive environment. Hospitalist service consulted for medical management. Prior records from 03/25/17 indicated anemia (Hgb 10.3) and hypokalemia (K 3.3). Will obtain CBC and BMP now and treat as indicated. Underweight with BMI of 17.1. Will consult dietary for supplementation recommendations. Give extensive dental decay, will change diet to mechanical soft with chopped meats for ease of intake. Continue home medications and vitamins given history of alcohol abuse. Patient denies prior heart history. Monitor blood pressure closely. Monitor respiratory function closely. No wheezing or distress on exam and no home medications for COPD/asthma. Upon discharge, patient's care will be returned to PCP, Dr. Howard Wiggins. 03/28/17 Psych: Benadryl given by family for insomnia held upon admission. 03/29/17 Psych: Will consider requesting ST Eval to determine which foods would be most helpful for patient given poor dentition. Will discuss other care needs with family as well as patient has pressure wound on coccyx, will need 24/ supervision, etc. Plan to speak to DPOA about possibility of starting Remeron to target restless sleep, appetite. 03/30/17- Pt doing well. Continue current care 03/31/17 Pt is fairly stable. Continue current care Plan - 03/31/17 Overall, patient is doing well. Continue psychiatric care per Dr. Hayes and team. Continue to provide safe and supportive environment. Hypokalemia resolved. Will continue to monitor periodically. Anticipate discharge in near future. Continue current care. 04/01/17 Psych: Will discuss care requirements (as outline in HPI) with family to ensure safe discharge plan. Plan to discharge back home once arrangements have been finalized with family. Will ensure no further Benadryl to be given after discharge. 04/02/17 Psych: Discharge to home with son/DPOA; patient will be supervised for safety 08/10.
--- NOTE | 2017-04-02 15:48 | Neuropsychiatric Disch Summary ---
Discharge Information Date of admission: 03/27/17 10:19 Anticipated date of discharge: 04/02/17 Attending Physician: Clotilde Hayes MD Consults: 03/27/17 10:32 Case Management Consult [CONS] Routine Reason For Exam: Optimization of medical comorbidities Physician Consult [CONS] Routine Consulting Provider: Mike Valenzuela Reason For Exam: Optimization of medical comorbidities Ordering Provider has Notified Director Of Orthopedics: No Comment: Nursing - please notify 03/28/17 10:12 Dietary Consult [CONS] Routine Comment: Reason For Exam: malnutrition 03/28/17 22:49 W[facility] Consult [CONS] Routine Reason for consultation: 2 open areas on coccyx - Discharge Diagnosis (1) Delirium, drug-induced Status: Resolved (2) Major neurocognitive disorder Status: Acute (3) Anemia Status: Acute (4) Poor nutrition Status: Acute (5) Cataracts, bilateral Status: Acute (6) COPD with asthma Status: Acute (7) Urinary incontinence Status: Acute (8) History of alcohol use disorder Status: Acute (9) History of tobacco use disorder Status: Acute Drug-induced delirium (resolved) Major neurocognitive disorder, vascular, moderate, with behavioral disturbance - Laboratory Labs: 04/01/17 08:54 04/01/17 08:54 Date of Admission: 03/27/17 10:19 History of Present Illness: Patient is a 77-year-old male who was admitted to [facility] on 03/27/17 after being brought by his family due to AV hallucinations, not sleeping, decreased appetite, frequent falls and their difficulty caring for patient because of these things. This has gotten progressively worse over the past 10-14 days. Patient lives in [place] with his son/DADA and his and has done so since November 2016. His son is DADA. On interview, patient is quite pleasant. He reports his mood is "good" and states he is here because he "was having back flashes" but these went away. He denies any change in sleep or appetite. He denies any SI, HI or AVH. He denies any paranoia. He is oriented to self only and believes he has been here for 3 months. Psychiatric history: Patient states that he was depressed once earlier in his life, but not currently. He is unsure if he took any medication for this. He denies any history of suicide attempts or psychiatric hospitalizations. This has not been validated by his family. Social history: Patient states that he is originally from [place] and went to school through 11th grade. 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 He does have a history of tobacco use and alcohol abuse, but says this was a long time ago. The above has also not been validated by his family. Patient is not able to name any medical conditions. His dentition is quite poor. Per hospitalist's chart review he has the following: anemia, poor nutrition, cataracts, COPD with asthma, urinary incontinence. Patient's SLUMS was 16/30 upon admission. Hospital Course This is a general summary of the patient's hospital course. For more details refer to the complete medical record. Hospital course: Plan - 03/28/17 (Admission) Agree with admission to [facility] unit. Provide safe and supportive environment. Hospitalist service consulted for medical management. Prior records from 03/25/17 indicated anemia (Hgb 10.3) and hypokalemia (K 3.3). Will obtain CBC and BMP now and treat as indicated. Underweight with BMI of 17.1. Will consult dietary for supplementation recommendations. Give extensive dental decay, will change diet to mechanical soft with chopped meats for ease of intake. Continue home medications and vitamins given history of alcohol abuse. Patient denies prior heart history. Monitor blood pressure closely. Monitor respiratory function closely. No wheezing or distress on exam and no home medications for COPD/asthma. Upon discharge, patient's care will be returned to PCP, Dr. Howard Wiggins. 03/28/17 Psych: Benadryl given by family for insomnia held upon admission. Continue Seroquel as he was taking it at home (12.5mg PO daily at 1400 and 50mg at HS). 03/29/17 Psych: Will consider requesting ST Eval to determine which foods would be most helpful for patient given poor dentition. Will discuss other care needs with family as well as patient has pressure wound on coccyx, will need 24/7 supervision, etc. Plan to speak to DPOA about possibility of starting Remeron to target restless sleep, appetite. 03/30/17- Pt doing well. Continue current care 03/31/17 Pt is fairly stable. Continue current care Plan - 03/31/17 Overall, patient is doing well. Continue psychiatric care per Dr. Hayes and team. Continue to provide safe and supportive environment. Hypokalemia resolved. Will continue to monitor periodically. Anticipate discharge in near future. Continue current care. 04/01/17 Psych: Will discuss care requirements (as outline in HPI) with family to ensure safe discharge plan. Plan to discharge back home once arrangements have been finalized with family. Will ensure no further Benadryl to be given after discharge. 04/02/17 Psych: Discharge to home with son/DPOA; patient will be supervised for safety 08/10. Discharge Plan - Med Rec/Dispo Referrals/Follow Up: Howard Wiggins MD [Other] (Dr. Howard Wiggins on 04/15/17 at 2:30 pm for Hosp. follow-up. [phone] [facility] [address] [place] [address] CBC at his appt with his PCP given his drop in hgb. Patient should have f-u CBC at that visit as he had an almost 2 point drop in his hgb while here. PCP will manage Mental Health needs) Additional Instructions: Discharge Diagnosis: Medication-induced delirium (resolved) Major neurocognitive disorder, vascular, moderate, with behavioral disturbance Reasons for Admission: Delusions and hallucinations, not sleeping, frequent falls. IN CASE OF PSYCHIATRIC EMERGENCY, CONTACT [facility] STAFF AT [phone] ( available 24 hrs daily). Prescriptions: New Mirtazapine [Remeron] 7.5 mg PO HS 60 Days #30 tab Continue Thiamine [Vitamin B-1] 100 mg PO DAILY Folic Acid [Folate] 1 tab PO DAILY Quetiapine [Seroquel] 50 mg PO HS #0 Quetiapine [Seroquel] 12.5 mg PO 1400 #0 Multivitamin [Multivitamins] 1 cap PO DAILY Memantine [Namenda] 10 mg PO DAILY #0 Discontinued DiphenhydrAMINE [Benadryl] 1 cap PO HS - Disposition 01 Discharged Home, Self-Care
== END 2017-04-02 11:40 | disposition home or self-care (01) | DRG 885 ==
LOC: GEN 10:19
PROVIDERS: ADMIT Psychiatry & Neurology Psychiatry; ATTEND Psychiatry & Neurology Psychiatry